=== PATIENT | male | born 1945 | race Caucasian/White ===

== ENCOUNTER 2018-09-11 02:32 | Outpatient (CLI) | payer MEDICARE, MEDICAID, SELFPAY ==
[2018-09-11 10:22] LABS: HCT 45.3 % (40.0-50.0); HGB 15.7 g/dL (13.5-17.5); Mean Corp. HGB Concentration 34.7 g/dL (32.0-36.0); Mean Corpuscular Hemoglobin 31.1 pg (27.0-33.0); Mean Corpuscular Volume 89.7 fL (80-95); Mean Platelet Volume 11.5 fL (8.0-11.0); Platelet Count 171 x1000/uL (130-400); RBC 5.05 m/cumm (4.50-6.00); RBC Distribution Width 14.1 % (11.8-14.1); White Blood Cell Count 7.69 k/cumm (4.4-10.8)
[2018-09-11 11:29] LABS: BUN 16 mg/dL (7-18); CREATININE 0.83 mg/dL (0.70-1.30); Calcium 8.4 mg/dL (8.5-10.1); Chloride 106 mmol/L (98-107); Cholesterol 150 mg/dL (50-200); Glucose 67 mg/dL (70-100); HDL Cholesterol 46 mg/dL (40-60); LDL CHOLESTEROL 85 mg/dL (<100); Potassium 4.3 mmol/L (3.5-5.1); Sodium 143 mmol/L (136-145); TSH (W/Ref FT4) 3.24 uIU/mL (0.358-3.74); Triglyceride 155 mg/dL (30-150)
== END 2018-09-11 02:52 ==
PROVIDERS: PCP Nurse Practitioner Family; Visit Provider Specialist/Technologist Athletic Trainer
DX: E03.9 Hypothyroidism, unspecified (principal)
CPT/HCPCS: 36415; 80048; 80061; 83721; 85027; 84443

== ENCOUNTER 2019-11-10 03:45 | Outpatient (CLI) | payer MEDICARE, MEDICAID, SELFPAY ==
[2019-11-10 14:00] LABS: HCT 45.5 % (40.0-50.0); HGB 15.6 g/dL (13.5-17.5); Mean Corp. HGB Concentration 34.3 g/dL (32.0-36.0); Mean Corpuscular Hemoglobin 30.3 pg (27.0-33.0); Mean Corpuscular Volume 88.3 fL (80-95); Mean Platelet Volume 10.9 fL (8.0-11.0); Platelet Count 176 x1000/uL (130-400); RBC 5.15 m/cumm (4.50-6.00); RBC Distribution Width 13.4 % (11.8-14.1); White Blood Cell Count 8.08 k/cumm (4.4-10.8)
[2019-11-10 14:23] LABS: NT-proBNP 101 pg/mL (<300); TSH 5.37 uIU/mL (0.36-3.74)
== END 2019-11-10 04:05 ==
PROVIDERS: PCP Nurse Practitioner Family; Visit Provider Nurse Practitioner Family
DX: E03.9 Hypothyroidism, unspecified (principal); R53.83 Other fatigue; Z00.00 Encounter for general adult medical examination without abnormal findings
CPT/HCPCS: 36415; 85027; 83880; 84443

== ENCOUNTER 2020-04-03 12:04 | Emergency (ER) | payer MEDICARE, MEDICAID, SELFPAY ==
[2020-04-03 12:14] VITALS: BP 112/93; PULSE 72; RESP 18; TEMP 36.5; O2SAT 95
--- NOTE | 2020-04-03 12:15 | DI.RAD_ITS ---
EXAM: XR PELVIS AP CLINICAL HISTORY: hip pain this morning. TECHNIQUE: 2D digital imaging was performed. COMPARISON: No exams were available for comparison FINDINGS: Right hip hardware noted.. On this single pelvic view the entire extent of the hardware is not inclu ded in the field of view. No pelvic fracture seen. No diastasis of the SI joints and symphysis pubi s. Bone density is age-appropriate. IMPRESSION: As above. If clinically indicated dedicated hip films can be performed. DATA REPOSITORY: RADIATION DOSE DELIVERED:
--- NOTE | 2020-04-03 12:30 | DI.RAD_ITS ---
EXAM: XR LUMBAR SPINE AP, LAT CLINICAL HISTORY: nonverbal. Back/hip pain. TECHNIQUE: 2D digital imaging was performed. COMPARISON: No exams were available for comparison FINDINGS: AP and lateral views reveal no evidence of compression fracture or listhesis. No pars defects. No s ignificant scoliosis. There is moderate disc space narrowing at L1-2 level and T12-L1. Disc spaces below this level exhibit normal height. Sacroiliac joints appear unremarkable. No osseous lesions. IMPRESSION: No fracture or listhesis. Disc narrowing at L1-2 level. DATA REPOSITORY: RADIATION DOSE DELIVERED:
--- NOTE | 2020-04-03 12:30 | W.ED.GENAD ---
Discharge Plan Disposition Patient Disposition: HOME Condition: Improving Discharge Details Clinical Impression: Lumbar strain Primary Care Provider: Gabbie Camargo ED Provider: Lv Pelaez Home Meds and New Rx's Prescriptions: Continued acetaminophen [Mapap Extra Strength] 500 MG tablet 500 mg PO Q4H PRN PRN (Reason: Pain) RF: 0 carbamide peroxide [Murine Ear Wax Removal System] 18 ML drops 3 - 4 patch DIRECTED RF: 0 docusate sodium [Colace] 100 MG capsule 100 mg PO BID RF: 0 lisinopril 5 MG tablet 5 mg PO DAILY RF: 0 multivitamin 1 EACH capsule 1 ea PO BID RF: 0 levothyroxine 50 mcg Tablet See Rx Instructions .ROUTE .COMPLEX RF: 0 Discharge Instructions Instructions: Low Back Strain (ED) Additional Instructions: Home to rest today. Begin range of motion exercises as discussed with physical therapy Continue your regular medications. May use Tylenol as needed for pain. Return for inability to walk, escalating pain, or any other acute concerns. Medical Decision Making 74-year-old male presents from care home where he lives. He is nonverbal. This morning staff noted some pain with transferring but the patient was able to weight-bear. By report had no complaints at bedtime last night. No known fall. No recent injury. Exam is reassuring. Referred for x-ray of pelvis and lumbar spine. There is note of disc narrowing at L1-L2, no fracture appreciated. No fracture seen on pelvis x-ray. Patient is also evaluated by physical therapy and able ambulate without difficulty. May be lumbar or hamstring strain and discussed same as well as management with the patient's caregiver. He is stable and appropriate for discharge to home. He will benefit from in-home PT recheck as an outpatient. HPI General Mode of arrival: wheelchair. Date/Time Provider Initiated Documentation: 04/03/20 12:05. Limitations to Documentation: language barrier. History of Present Illness 74 year old M presents to the emergency department with the chief complaint of Nonverbal, brought by staff with concern for low back, pelvis, hip pain, described as moderate, and is localized to the pelvis. Patient started experiencing this unknown (This morning) Patient notes other (No known fall or injury. No fever.). Patient did receive the following treatments prior to arrival, other Related Data Home Medications Medication Instructions Recorded Confirmed acetaminophen [Mapap Extra 500 mg PO Q4H PRN PRN 04/16/13 04/03/20 Strength] carbamide peroxide [Murine Ear Wax 3 - 4 patch DIRECTED 04/16/13 04/03/20 Removal System] docusate sodium [Colace] 100 mg PO BID 04/16/13 04/03/20 lisinopril 5 mg PO DAILY 04/16/13 04/03/20 multivitamin 1 ea PO BID 04/16/13 04/03/20 levothyroxine See Rx Instructions .ROUTE .COMPLEX 04/03/20 04/03/20 Allergies Allergy/AdvReac Type Severity Reaction Status Date / Time No Known Allergies Allergy Unverified 04/03/20 12:20 General Stated Complaint: Orthopedic BENJIE: 3 Review of Systems Narrative: No fall or injury. Patient is nonverbal. Lives in a care home. No fever or recent illness. See HPI. PFS Social History Smoking/Tobacco Use Status: Never Smoking risk assessment performed?: Yes Alcohol Intake: never Drug use: Never Exam Narrative Exam Narrative: GEN: awake, alert, interactive, nonverbal. HEAD: Normocephalic, atraumatic ENT: Mucous membranes moist, oropharynx unremarkable, External ear exam unremarkable EYES: PERRL, EOMI NECK: Full ROM, no JONNATHAN, no menigismus CHEST/RESP: Nontender, clear to auscultation bilateral, no wheeze/rhonchi/rales CARDIOVASCULAR: RRR, no murmur, rub candy. 2+ Rad pulse bilateral ABDOMEN: Soft, nontender, no mass. +Bowel sounds EXT: Full ROM, no edema, no rash, no tenderness. Back: No step-off or deformity, no focal tenderness Neuro: Grossly normal neurologic exam, conversant, interactive. Psych: Speech fluent, thoughts congruent, affect normal Course Vital Signs Vital signs: Vital Signs Pulse 72 04/03/20 12:14 Respiratory Rate 18 04/03/20 12:14 Blood Pressure 112/93 H 04/03/20 12:14 Pulse Oximetry 95 04/03/20 12:14 Pulse 72 04/03/20 12:14 Respiratory Rate 18 04/03/20 12:14 Respiratory Effort Non-Labored 04/03/20 12:27 Blood Pressure 112/93 H 04/03/20 12:14 Blood Pressure Position Sitting 04/03/20 12:14 Pulse Oximetry 95 04/03/20 12:14 Oxygen Delivery Method Room Air 04/03/20 12:14 Oxygen Flow Rate 0 04/03/20 12:14 Comment 04/03/20 12:14
--- NOTE | 2020-04-03 14:48 | PT.INIE ---
Date of service: 04/03/20 Time of Service: 14:48 PT Notes Physical Therapy Inpatient Initial Evaluation Date: 04/03/2020 Referring Doctor: Lv Pelaez MD PT Orders: PT CONSULT: Safety consult for DC Precautions: Fall. Standard. Activity as tolerated. Developmental delay. Patient Profile/Admitting Diagnosis: Walter is a 74-year-old to the ED on 04/03/2020 who presented with caregiver Myrna reports that patient had significant difficulty getting up and was unable to walk due to nonverbal expressions of pain as patient is dysphasic. PMHX: Hypertension Seizure disorder Autism Developmental delay Hip surgery Social History/Home Situation: [facility] [place] [facility]. Has / supervision. Bedroom is on the second floor with a flight of steps that patient always have somebody with him for all mobility ADL performance. Equipment Owned/DME: None Subjective: Caregiver Myrna complained that earlier this morning patient had a hard time getting up and was not able to walk due to pain. Patient has been non-verbal but makes different sounds at baseline. Caregiver Myrna identified whether sounds made by patient were expressions of pain as this provider went about with examination. Objective: General Observation: Patient supine in stretcher, verbal and body stimulation behavior noted. Caregiver Myrna seated beside him. Mental Status: Alert but non-verbal. Repetitive arm movement and repetitive sound production that sounded like moaning seen and heard. Pain: Did not want proximal posterior thigh area palpated by pushing PT's hands away and by grimacing ROM: Lacks the last 50% of passive range of motion in all joints of B LE. Expression of pain observed with attempt at testing R hamstring while in supine. Strength: Right Lower Extremity: Hip flexors 3-/5. Hip abductors 3-/5. Knee flexors 3-/5. Knee extensors 3-/5. Ankle dorsiflexors 3-/5. Ankle plantarflexors 3-/5. Left Lower Extremity:Hip flexors 3-/5. Hip abductors 3-/5. Knee flexors 3-/5. Knee extensors 3-/5. Ankle dorsiflexors 3-/5. Ankle plantarflexors 3-/5. Sensation: Intact as to pain and pressure on bilateral lower extremities. Bed Mobility/Transfers: Supine to sit minimal assist Sit to supine minimal assist Sit to stand CGA Stand to sit CGA Gait: SBA of 2 in the ED hallway for about 100 feet with no assistive device but with mild almost negligible limping on the R LE during stance phase. Caregiver Myrna indicated that Walter usually walks faster than today and that he does not have that limp prior to today's visit. No grimacing and no sound production indicative of pain during activity. Balance: Static Sitting: Normal Dynamic Sitting: Normal Static Standing: Good Dynamic Standing: Good Special Tests: Mobility Limitations Standardized Measure [facility] AM-PAC 6 clicks Basic Mobility Inpatient Short Form: Raw Score: 21 CMS Score: 22% deficit SLR: Allowed about 45 degrees of passive SLR on the R. Expression of pain with passive R SLR and with palpation of proximal hamstring area. Informed Consent/Education: Patient and caregiver were instructed in purpose of PT consult. Assessment: Walter demonstrates pain with and limitation of passive R hip flexion and resulting mild antalgic gait which may have resulted from a suspected R lumbar/R hamstring strain. Caregiver was advised to use hot moist pack for 20 with skin examination every 5 minutes by nurse/caregiver to prevent skin burn as well as to perform range of motion exercises on the R hip to minimize stiffness. Patient presents with clinical signs and symptoms consistent with current/admitting diagnoses that have resulted to mobility limitations, gait instability, generalized weakness, and impairment of motor control as demonstrated by the following impairment level findings: 1. Decreased strength to B B LE muscle groups 2. Impaired sitting/standing balance 3. Impaired activity tolerance 4. Limitation of joint range of motion in B LE with R >>L Impairments are contributing to the following functional limitations: 1. Dependent bed mobility skills 2. Increased dependence with transfers 3. Inability to safely ambulate without supervision 4. Increase completion time for mobility ADL performance 5. Increased fall risk 6. Inability to negotiate steps alone safely Patient is assessed as a 40138 moderate complexity based on the following: History: 74-year-old male with impairment level findings, functional limitations, and past medical history as indicated above Examination: Demonstrable impairment in strength, balance, and mobility level with underlying impairments and functional limitations as documented above Presentation:Evolving Decision Makin moderate complexity Goals: Goals X1 week N/A. PT consult and one treatment session for CG education on plan of care only Plan of Care/Treatment Plan: N/A. PT consult and one treatment session for CG education on plan of care only DISCHARGE RECOMMENDATIONS: PT to continue with management of lumbar/hamstring strain. TREATMENT CODE/TIME: 87579 x 27 minutes beginning at 2:48 PM. Thank you for the opportunity to participate in the care of this patient. Megha Fish PT, DPT, CLT [facility] [place], [place]
[2020-04-03 15:28] VITALS: BP 96/68; PULSE 69; RESP 20; TEMP 36.5; O2SAT 98
== END 2020-04-03 15:50 | disposition home or self-care (01) ==
PROVIDERS: Emergency Provider Emergency Medicine; PCP Nurse Practitioner Family
DX: S39.012A Strain of muscle, fascia and tendon of lower back, initial encounter (principal); X58.XXXA Exposure to other specified factors, initial encounter
CPT/HCPCS: 97162; 99284; 72100; 72170; 99283

== ENCOUNTER 2020-10-14 12:08 | Outpatient (REF) | payer MEDICARE, MEDICAID, SELFPAY ==
[2020-10-14 15:37] LABS: HCT 47.2 % (40.0-50.0); HGB 15.7 g/dL (13.5-17.5); MCHC 33.3 % (32.0-36.0); MCV 90.1 fL (80-95); Platelet Count 192 10^3/uL (130-400); RBC 5.24 10^6/uL (4.36-5.78); RDW 13.6 % (11.8-14.1); RDW-SD 44.7 fL; WBC 8.74 10^3/uL (4.4-10.8)
[2020-10-14 16:23] LABS: Anion Gap 8.7 mmol/L (3-11); BUN 14 mg/dL (7-18); CO2 27.3 mmol/L (21.0-32.0); CREATININE 0.9 mg/dL (0.70-1.30); Calcium 8.9 mg/dL (8.5-10.1); Chloride 107 mmol/L (98-107); Glucose 94 mg/dL (74-106); Potassium 3.9 mmol/L (3.5-5.1); Sodium 143 mmol/L (136-145); TSH 3.41 uIU/mL (0.36-3.74)
== END 2020-10-14 12:09 | disposition home or self-care (01) ==
LOC: NCHCN 12:08
PROVIDERS: PCP Nurse Practitioner Family; Visit Provider Nurse Practitioner Family
DX: E03.9 Hypothyroidism, unspecified (principal)
CPT/HCPCS: 80048; 85027; 84443

== ENCOUNTER 2021-06-27 15:54 | Emergency (ER) | payer MEDICARE, MEDICAID, SELFPAY ==
[2021-06-27 15:58] VITALS: BP 164/99; PULSE 83; RESP 20; TEMP 36.6; O2SAT 98
--- NOTE | 2021-06-27 16:15 | DI.RAD_ITS ---
Exam(s) XR PELVIS AP EXAM: XR PELVIS AP CLINICAL HISTORY: Hip pain, won't bear weight TECHNIQUE: COMPARISON: CR XR PELVIS AP from 04/03/2020 FINDINGS: Two views were obtained. There is fixation apparatus in the proximal right femur which is incomplete ly seen on these images. There is no evidence of acute fracture or dislocation on the images obtaine d. If there is a high clinical suspicion of injury additional evaluation with CT may be considered. IMPRESSION: RADIATION DOSE DELIVERED: Total DLP
--- NOTE | 2021-06-27 16:44 | W.ED.GENAD ---
Discharge Plan Disposition Patient Disposition: HOME Condition: Improving Discharge Details Clinical Impression: Hip pain Primary Care Provider: Gabbie Camargo ED Provider: Krishna Mandujano Home Meds and New Rx's Prescriptions: Continued acetaminophen [Mapap Extra Strength] 500 MG tablet 500 mg PO Q4H PRN PRN (Reason: Pain) 0RF carbamide peroxide [Murine Ear Wax Removal System] 18 ML drops 3 - 4 patch DIRECTED 0RF docusate sodium [Colace] 100 MG capsule 100 mg PO BID 0RF lisinopril 5 MG tablet 5 mg PO DAILY 0RF multivitamin 1 EACH capsule 1 ea PO BID 0RF levothyroxine 50 mcg Tablet See Rx Instructions .ROUTE .COMPLEX 0RF Rx Instructions: 50 mcg orally 5 days a week: Mon-Fri Discharge Instructions Instructions: Hip Pain (ED) Additional Instructions: X-ray of the pelvis was unremarkable and he is now using both legs frequently and bearing weight which appears to be his baseline. Please continue [id number] medications as directed. Rest, advance activity as tolerated, cool and/or warm compresses every 2 hours for 20 minutes. Please watch for new or worsening symptoms and return to the ER for any concerns. Lastly, please contact your primary care provider tomorrow to discuss your ER visit need for outpatient reevaluation. Medical Decision Making This is a 75-year-old gentleman, nonverbal, presenting via EMS from his [facility] with a staff member who reports that he appears to be at his baseline. They state that he is typically ambulatory without assistance and today after sitting after breakfast he did not want to stand and they felt as though he was likely favoring his right leg. They do know that he has a history of right hip surgery. Deny any recent illness or trauma. They used [id number] medications which did not seem to help so they came to the ER for further evaluation. There is no obvious deformity, shortening or rotation, normal pedal pulse, no calf swelling, redness, palpable cord. Patient has full range of motion of his leg. Discussed evaluation and the plan with staff. They are both concerned for a hip injury. I see no clear indication to initiate IV access or obtain any blood work. Will obtain x-ray of the pelvis and reassess X-ray pelvis read by radiology as no acute process. Discussed x-ray findings with staff member of the [facility] and need for further evaluation versus discharge. Plan now is to attempt to trial ambulate the patient and reassess. They would prefer to hold off on any IV access, blood work or CT imaging. Patient was able to ambulate, fully bear weight on both legs without any difficulty whatsoever. Staff reports that he appears to be at his baseline and is comfortable discharge back to the [facility] facility. She does assure me that they will return to the ER for any new or evolving symptoms. Otherwise stable use [id number] medication for symptomatic control and contact your primary care provider on Wednesday. Patient appears well, nontoxic, able to fully bear weight, and is at baseline per staff. This documentation was generated using [employer] system, please disregard any oddities of phrase or misspellings. Medical Records Medical records reviewed: Yes I reviewed the patient's medical records. Imaging Data Radiologic Study: Attestation: I personally reviewed and interpreted this imaging study as follows: Imaging: X-Ray Radiologist's impression: PROCEDURE INFORMATION: Exam: XR Pelvis Exam date and time: 06/27/2021 4:24 PM Age: 75 years old Clinical indication: Pelvic pain; Prior surgery; Patient HX: Hip pain, won't bear weight TECHNIQUE: Imaging protocol: XR pelvis. Views: 1 or 2 view. COMPARISON: CR XR PELVIS AP 04/03/2020 1:09 PM FINDINGS: Bones/joints: Redemonstrated fixation hardware right proximal femur. No acute fracture or dislocation. Soft tissues: Unremarkable soft tissues. IMPRESSION: No acute findings. HPI General Mode of arrival: EMS. Date/Time Provider Initiated Documentation: 06/27/21 15:59. Limitations to Documentation: language barrier (non verbal). Information obtained by: family (staff from [facility]). HPI Narrative: This is a 75-year-old gentleman, nonverbal, presenting to the ER via EMS with staff from his [facility] for concern of a right hip injury. Staff reports that he has been baseline over the past 24 hours, this morning was ambulatory and had breakfast. He sat down in his chair after breakfast and may be sat down longer than he typically does, then upon trying to get up seem to be favoring his right leg and did not want to bear weight. They gave [id number] Tylenol which did not seem to help. There was no trauma. Staff reports that he appears to be at his normal baseline. Denies recent illness, trauma, fever. Reports that he is typically ambulatory without assistance Related Data Home Medications Medication Instructions Recorded Confirmed acetaminophen 500 mg tablet (Mapap 500 mg PO Q4H PRN PRN 04/16/13 04/03/20 Extra Strength) carbamide peroxide 6.5 % ear drops 3 - 4 patch DIRECTED 04/16/13 04/03/20 (Murine Ear Wax Removal System) docusate sodium 100 mg capsule 100 mg PO BID 04/16/13 06/27/21 (Colace) lisinopril 5 mg tablet 5 mg PO DAILY 04/16/13 04/03/20 multivitamin 1 ea PO BID 04/16/13 06/27/21 levothyroxine 50 mcg tablet See Rx Instructions .ROUTE .COMPLEX 04/03/20 06/27/21 Allergies Allergy/AdvReac Type Severity Reaction Status Date / Time No Known Allergies Allergy Verified 06/27/21 16:20 General Stated Complaint: Orthopedic BENJIE: 3 Review of Systems Unobtainable due to (Nonverbal) PFSH All Active Problems Hip pain (Acute) Social History Smoking/Tobacco Use Status: Never Smoking risk assessment performed?: Yes Alcohol Intake: never Drug use: Never Substance use type: does not use Do you feel safe at home: Yes Additional Social history: lives in an assisted living facility Exam Const General: healthy appearing, no acute distress and other (Unable to follow commands, baseline per staff) Orientation: alert and awake HENAZ Head: normal to inspection, normocephalic and atraumatic Mouth: moist mucous membranes Eyes Conjunctivae: conjunctivae normal Neck Neck: normal visual inspection, full ROM, trachea midline and supple Resp Effort & Inspection: normal respiratory effort and able to speak in complete sentences Auscultation: clear to auscultation bilaterally Cardio Rate: regular rate Rhythm: regular rhythm GI Palpation: soft, not firm, no guarding, no pulsatile masses and nontender Back/Spine/Pelvis Back: No back tenderness Skin General skin exam: no rashes or lesions noted Neuro General: patient alert, patient awake, moves all extremities and no focal motor deficits Motor: muscle tone normal throughout Sensory Exam: no sensory deficits noted Extrem General: normal to inspection, full ROM, capillary refill normal and no calf tenderness Psych Appearance: grossly normal Mental Status: mental status grossly normal Course Vital Signs Vital signs: Vital Signs Temperature 36.6 C 06/27/21 15:58 Pulse 83 06/27/21 15:58 Respiratory Rate 20 06/27/21 15:58 Blood Pressure 164/99 H 06/27/21 15:58 Pulse Oximetry 98 06/27/21 15:58 Temperature 36.6 C 06/27/21 15:58 Temperature Source Skin 06/27/21 15:58 Pulse 83 06/27/21 15:58 Respiratory Rate 20 06/27/21 15:58 Blood Pressure 164/99 H 06/27/21 15:58 Pulse Oximetry 98 06/27/21 15:58 Oxygen Delivery Method Room Air 06/27/21 15:58 Oxygen Flow Rate 0 06/27/21 15:58 Comment 06/27/21 15:58
--- NOTE | 2021-06-27 17:42 | NUR.NOTE ---
Nursing Note: Pt return from DI, provider requested to have pt do trial ambulation, pt assisted OOB and was able to ambulate at baseline per pt caregiver.
--- NOTE | 2021-06-27 17:43 | DI.VRAD_ITS ---
PROCEDURE INFORMATION: Exam: XR Pelvis Exam date and time: 06/27/2021 4:24 PM Age: 75 years old Clinical indication: Pelvic pain; Prior surgery; Patient HX: Hip pain, won't bear weight TECHNIQUE: Imaging protocol: XR pelvis. Views: 1 or 2 view. COMPARISON: CR XR PELVIS AP 04/03/2020 1:09 PM FINDINGS: Bones/joints: Redemonstrated fixation hardware right proximal femur. No acute fracture or dislocation. Soft tissues: Unremarkable soft tissues. IMPRESSION: No acute findings. Dictated and Authenticated by: Dallin Ladd MD. Ordering:RENÉ Keller MD
== END 2021-06-27 17:57 | disposition home or self-care (01) ==
PROVIDERS: Emergency Provider Physician Assistant; PCP Nurse Practitioner Family
DX: M25.551 Pain in right hip (principal); R47.89 Other speech disturbances
CPT/HCPCS: 99283; 72170; 99282

== ENCOUNTER 2021-06-29 10:15 | Inpatient (IN) | payer MEDICARE, MEDICAID, SELFPAY ==
[2021-06-29] VITALS (25 sets, daily range): BP systolic 110–189; BP diastolic 62–88; PULSE 62–87; RESP 10–29; TEMP 36–36.6; O2SAT 94–97
--- NOTE | 2021-06-29 11:03 | W.ED.GENAD ---
Discharge Plan Disposition Patient Disposition: [facility] INPATIENT Condition: Improving Discharge Details Chief Complaint: GenMedical Clinical Impression: Acute pain of left hip, Ambulatory dysfunction Admit Date/Time: 06/29/21 15:45 Admit Provider: Cheyanne Bhatt Attending Provider: Cheyanne Bhatt Primary Care Provider: Margaret Irizarry ED Provider: Khoa Chung Discharge Instructions Activity:: Activity as Tolerated Equipment/Supplies:: No Equipment Needed Diet:: As Tolerated Discharge Orders Discharge Orders: Discharge Order (Routine); Ordered 07/01/21 Ordered By: Jacque Ag Discharge Data Discharge Date/Time-TO BE ENTERED AT DEPARTURE: 06/29/21 16:44 Medical Decision Making Patient presenting to the emergency department for chief complaint of inability to bear weight, hip pain, and urinary retention. Patient was seen on Wednesday and had radiological imaging performed of left hip which was negative. At that time patient was able to ambulate around the emergency department so was discharged back to care facility. They state since then patient has not gotten up and continues to refuse to ambulate. He has been holding his urine with some incontinence that they feel is more secondary to not wanting to get up. Staff reports that patient's mental statusis at baseline. Physical exam shows noncommunicative moaning and singing adult landing primarily on his right side. Clear lung sounds normal cardiac sounds, nontender abdomen with normal active bowel sounds. No tenderness noted over suprapubic region, there is noted tenderness when I palpate the left hip but again difficult to pinpoint given patient's communication status. Exam is otherwise unremarkable, no obvious signs of acute trauma. Given that patient already had x-ray imaging with no acute findings plan to do CT imaging including CT of hip for possible occult hip fracture. Plan to give patient pain medication pending results. We will also perform catheterization to measure how much urine output patient has. In and out catheter showed 700c urine with only 45 cc of urine [address] imaging shows no acute findings but of note was a significant abdominal thoracic hernia. Did discuss with surgery who also feels that this is a nonacute finding and no surgical interventions needed. Patient still seems to be in pain with movement so we will give Toradol and have patient attempt to ambulate. Patient was not willing/unable to ambulate. Spoke with staff at care facility and they stated that to return to care facility patient would need to be ambulatory given that they do not have the capacity to care for nonambulated patient. Due to this hospitalist was consulted for consideration of physical therapy assessment and interventions along with any further testing as needed or if further exam reveals more pertinent finding. Hospitalist was agreeable to admit patient. HPI General Mode of arrival: EMS. Date/Time Provider Initiated Documentation: 06/29/21 10:45. Limitations to Documentation: language barrier. Information obtained by: RN/MD (manager delivery at [facility]), RN notes reviewed and old records reviewed. History of Present Illness 75 year old M presents to the emergency department with the chief complaint of Left hip pain and urinary retention with incontinence, described as moderate, Quality is described as constant, and is localized to the left and lower extremity. Patient started experiencing this day(s) (3) and it has been constant. improves with No relieving factors improve symptom(s), Movement worsens symptoms . Patient notes no other symptoms.. Patient did receive the following treatments prior to arrival, none Related Data Home Medications Medication Instructions Recorded Confirmed acetaminophen 500 mg tablet (Mapap 500 mg PO Q4H PRN PRN 04/16/13 06/29/21 Extra Strength) carbamide peroxide 6.5 % ear drops 3 - 4 patch DIRECTED 04/16/13 06/29/21 (Murine Ear Wax Removal System) docusate sodium 100 mg capsule 100 mg PO BID 04/16/13 06/29/21 (Colace) multivitamin 1 ea PO BID 04/16/13 06/29/21 levothyroxine 50 mcg tablet See Rx Instructions .ROUTE .COMPLEX 04/03/20 06/29/21 gabapentin 100 mg capsule 100 mg PO TID #90 cap 07/01/21 lidocaine 5 % topical patch 1 patch TOPICAL DAILY@1400 #15 ea 07/01/21 prednisone 20 mg tablet 40 mg PO DAILY #10 tab 07/01/21 tamsulosin 0.4 mg capsule 0.4 mg PO DAILY #30 cap 07/01/21 Previous Rx's Medication Instructions Recorded gabapentin 100 mg capsule 100 mg PO TID #90 cap 07/01/21 lidocaine 5 % topical patch 1 patch TOPICAL DAILY@1400 #15 ea 07/01/21 prednisone 20 mg tablet 40 mg PO DAILY #10 tab 07/01/21 tamsulosin 0.4 mg capsule 0.4 mg PO DAILY #30 cap 07/01/21 Allergies Allergy/AdvReac Type Severity Reaction Status Date / Time No Known Allergies Allergy Verified 06/29/21 10:33 General Stated Complaint: GenMedical BENJIE: 3 Review of Systems Narrative: 8 systems reviewed and are unremarkable except for pertinent findings marked below Constitutional Constitutional: Denies chills and Denies fever(s) Gastrointestinal Gastrointestinal: Denies diarrhea and Denies vomiting Genitourinary Genitourinary: Reports as per HPI, Reports oliguria and Reports urinary incontinence Musculoskeletal Musculoskeletal: Reports as per HPI Neurologic Neurologic: Reports system reviewed and no additional complaints, except as documented and Reports other (No change from baseline) PFSH All Active Problems (Updated 07/04/21 @ 15:40 by Khoa Chung NP) Acute pain of left hip (Acute) Ambulatory dysfunction (Acute) Medical History (Updated 07/04/21 @ 15:40 by Khoa Chung NP) Hypothyroidism Nonverbal Palliative care status Social History Smoking/Tobacco Use Status: Never Smoking risk assessment performed?: Yes Alcohol Intake: never Drug use: Never Substance use type: does not use Do you feel safe at home: Yes Additional Social history: lives in an assisted living facility Exam Const Limitations: behavioral limitations, language barrier and physical limitations [facility] Head: atraumatic Eyes General: appearance normal, both eyes and all related structures Resp Effort & Inspection: normal respiratory effort Auscultation: clear to auscultation bilaterally Cardio Rate: regular rate Rhythm: regular rhythm Heart Sounds: S1 normal and S2 normal GI Palpation: soft and nontender Auscultation: normal bowel sounds Back/Spine/Pelvis Thoracic/Lumbar Spine: No lumbar spinal tenderness Skin General skin exam: no rashes or lesions noted Neuro General: patient alert, patient awake and moves all extremities Extrem General: normal exam except as noted Left lower extremity: hip/thigh Details: tenderness; Negative for no ecchymosis and no deformity, knee Details: normal to inspection, lower leg Details: normal to inspection, ankle Details: normal to inspection and foot Details: normal capillary refill Course Vital Signs Vital signs: Vital Signs Temperature 36.6 C 06/29/21 10:21 Pulse 85 06/29/21 10:21 Respiratory Rate 15 06/29/21 10:21 Blood Pressure 189/85 H 06/29/21 10:21 Pulse Oximetry 97 06/29/21 10:21 Temperature 36.6 C 06/29/21 10:21 Temperature Source Skin 06/29/21 10:21 Pulse 74 06/29/21 10:31 Pulse 76 06/29/21 10:31 Respiratory Rate 10 L 06/29/21 10:31 Respiratory Effort 06/29/21 10:21 Blood Pressure 140/85 06/29/21 10:31 Blood Pressure Mean 99 06/29/21 10:31 Blood Pressure Position Supine 06/29/21 10:21 Pulse Oximetry 96 06/29/21 10:31 Pain Level 10 06/29/21 10:21
[2021-06-29 11:28] LABS: Abs Immature Grans 0.04 10^3/uL (0.0-0.06); Absolute Lymphocyte Count 2.77 10^3/uL (1.2-3.4); Absolute Monocyte Count 0.83 10^3/uL (0.1-0.8); Basophils % 0.3; Eosinophils % 0.9; HCT 47.9 % (40.0-50.0); HGB 16.2 g/dL (13.5-17.5); Immature Grans % 0.3; Lymphocytes % 23.9; MCH 30.3 pg (27.0-33.0); MCHC 33.8 % (32.0-36.0); MCV 89.7 fL (80-95); MPV 10.4 fL (8.0-11.0); Monocytes % 7.2; Neutrophils % 67.4; Nucleated RBC 0 %; Platelet Count 255 10^3/uL (130-400); RBC 5.34 10^6/uL (4.36-5.78); RDW 13.2 % (11.8-14.1); RDW-SD 43.4 fL; WBC 11.58 10^3/uL (4.4-10.8)
[2021-06-29 11:29] LABS: Absolute Basophil Count 0.03 10^3/uL (0.0-0.2)
[2021-06-29] MEDS: HYDROmorphone 2 MG/ML VIAL 1 MG IVP (11:33)
[2021-06-29 11:49] LABS: ALT 25 U/L (16-63); AST 31 U/L (15-37); Albumin 3.4 g/dL (3.4-5.0); Alkaline Phosphatase 62 U/L (46-116); Anion Gap 8.8 mmol/L (3-11); BUN 15 mg/dL (7-18); Bilirubin, Total 0.7 mg/dL (0.2-1.0); CO2 25.2 mmol/L (21.0-32.0); CREATININE 0.9 mg/dL (0.70-1.30); Calcium 8.5 mg/dL (8.5-10.1); Chloride 107 mmol/L (98-107); Glucose 103 mg/dL (74-106); Sodium 141 mmol/L (136-145); Total Protein 7.9 g/dL (6.4-8.2)
--- NOTE | 2021-06-29 12:15 | DI.CT_ITS ---
Exam(s) CT ABDOMEN PELVIS W EXAM: CT ABDOMEN PELVIS W CLINICAL HISTORY: LLQ, hip pain and urinary retention TECHNIQUE: COMPARISON: No exams were available for comparison FINDINGS: CT examination of the abdomen and pelvis was performed with bolus infusion of 100 cc of Omnipaque 350 . There is a very large hiatal and/or posterior diaphragmatic hernia projected into the central and rig ht lower thorax, this contains majority of the stomach as well as portions of colon, small bowel, spl een and pancreas.. No focal hepatic lesion. No biliary dilatation. Gallbladder is CT normal. Spleen a appears unremar kable. . Adrenals appear normal bilaterally. Kidneys appear normal with no evidence of renal mass, hydronephrosis, or nephrolithiasis. Urinary bl adder wall is thickened which may reflect chronic bladder outlet obstruction or cystitis, please inez elate clinically.. There is no evidence of abdominal or pelvic adenopathy. Abdominal aorta is of normal diameter and no abnormality is seen involving major visceral branches.. Appendix is nonvisualized. No evidence diverticulitis or bowel obstruction. Impression: Massive upper abdominal herniation into lower thorax as described above. No evidence of acute proces s.. RADIATION DOSE DELIVERED: 731.99mGy.cm Total DLP 731.99mGy.cm Total DLP !Error CTDIvol DATA REPOSITORY: All CT scans at this facility are submitted to the National Radiology Data Registry (NRDR) Dose Index Registry (DIR) with the [employer] [place] [employer] (ACR). RADIATION OPTIMIZATION: All CT scans at this facility use at least one of these dose optimization te chniques: automated exposure control; mA and/or kV adjustment per patient size (includes targeted exa ms where dose is matched to clinical indication); or iterative reconstruction.
--- NOTE | 2021-06-29 12:15 | DI.CT_ITS ---
Exam(s) CT LOWER EXTREMITY LT WO EXAM: CT LOWER EXTREMITY LT WO CLINICAL HISTORY: Hip pain not ambulating TECHNIQUE: COMPARISON: No exams were available for comparison FINDINGS: CT examination of the left hip was performed. No fluid collection identified in the pelvis. No capo opathy. In the visualized urinary bladder appears intact. There is no evidence of acute fracture or dislocation of the hip. IMPRESSION: RADIATION DOSE DELIVERED: 354.03mGy.cm Total DLP !Error CTDIvol RADIATION OPTIMIZATION: All CT scans at this facility use at least one of these dose optimization te chniques: automated exposure control; mA and/or kV adjustment per patient size (includes targeted exa ms where dose is matched to clinical indication); or iterative reconstruction.
[2021-06-29 12:18] LABS: Bilirubin Negative (Negative); Blood Small (Negative); Clarity Clear (Clear); Glucose Negative (Negative); Ketones Negative (Negative); Leukocyte Esterase Negative (Negative); Nitrite Negative (Negative); Specific Gravity >= 1.030 (1.005-1.025); Urobilinogen 0.2 EU/dL (Up TO 0.2)
[2021-06-29 12:31] LABS: Bacteria Rare HPF (Negative); C & S Indicated? No; Casts Negative LPF (Negative); Crystals Negative HPF (Negative); Epithelial Cells Rare HPF (Negative); Mucus Trace (Negative); Other Cells Few Spermatozoa (Negative); WBC 0-2 HPF (0-5)
[2021-06-29] MEDS: Omnipaque 350 MG/ML 100 ML BTL IJ (13:31)
--- NOTE | 2021-06-29 16:18 | HPE_ITS ---
Date of service: 06/29/21 Time of Service: 16:18 Assessment and Plan Assessment and plan (1) Hip pain: Status: Acute Assessment and plan: no witnessed or reported fall. plain film from Wednesday and CT scan from today shows no etiology to explain symptoms. schedule pain medication PT/OT consultation (2) Hypothyroidism: Status: Chronic Assessment and plan: check TSH continue levothryoxine 50 mcg on wednesday-through Wednesday discussed with DR Bhatt History of Present Illness History of Present Illness Chief Complaint: hip pain Narrative: history obtained from ED records as patient is unable to provide at baseline. Patient presented to the emergency department for chief complaint of inability to bear weight, left hip pain, and urinary retention.? Patient was seen on Wednesday and had radiological imaging performed of left hip which was negative.? At that time patient was able to ambulate around the emergency department so was discharged back to his care facility.? Since returning it was reported he has not gotten up and continues to refuse to ambulate.? He was straight cath'd for [address] imaging shows no acute findings but of note was a significant abdominal thoracic hernia.? This was discussed with surgery who stated this was a nonacute finding and no surgical interventions needed.? Even after receiving pain medication (toradol and dilaudid) he was still not able to be re-ambulated. Hospitalist services contacted and request for admission for ambulatory dysfunction. Review of Systems Unobtainable due to mental status (baseline non verbal. ) PFSH All Active Problems (Updated 06/29/21 @ 16:32 by Jacque Ag NP) Hypothyroidism (Chronic) Hip pain (Acute) Social History Smoking/Tobacco Use Status: Never Smoking risk assessment performed?: Yes Alcohol Intake: never Drug use: Never Substance use type: does not use Do you feel safe at home: Yes Additional Social history: lives in an assisted living facility Meds Allergies and Home Medications Allergies Allergy/AdvReac Type Severity Reaction Status Date / Time No Known Allergies Allergy Verified 06/29/21 10:33 Home Medications Medication Instructions Recorded Confirmed Type acetaminophen 500 mg tablet (Mapap 500 mg PO Q4H PRN PRN 04/16/13 06/29/21 History Extra Strength) carbamide peroxide 6.5 % ear drops 3 - 4 patch DIRECTED 04/16/13 06/29/21 History (Murine Ear Wax Removal System) docusate sodium 100 mg capsule 100 mg PO BID 04/16/13 06/29/21 History (Colace) multivitamin 1 ea PO BID 04/16/13 06/29/21 History levothyroxine 50 mcg tablet See Rx Instructions .ROUTE .COMPLEX 04/03/20 06/29/21 History Exam Const General: comfortable and no acute distress Nutritional Appearance: average body habitus and well nourished Orientation: alert, awake and other (non verbal, does not follow commands) [facility] Head: normal to inspection, normocephalic and atraumatic Chest Chest: normal inspection of the chest Resp Effort & Inspection: normal respiratory effort Cardio Rate: regular rate Rhythm: regular rhythm GI Inspection: normal to inspection Palpation: soft Skin General skin exam: no rashes or lesions noted and no ecchymosis Neuro Motor: muscle tone normal throughout Extrem General: normal to inspection, full ROM and no pedal edema Results Labs Result diagrams: 06/29/21 11:25 06/29/21 11:25 Labs: Laboratory Results - last 24 hr 06/29/21 06/29/21 06/29/21 11:25 11:25 11:47 WBC 11.58 H RBC 5.34 Hgb 16.2 Hct 47.9 MCV 89.7 MCH 30.3 MCHC 33.8 RDW 13.2 Plt Count 255 MPV 10.4 Immature Gran % 0.3 Neutrophils % 67.4 Lymphocytes % 23.9 Monocytes % 7.2 Eosinophils % 0.9 Basophils % 0.3 Nucleated RBC % 0 Absolute Neutrophils 7.80 H Absolute Lymphocytes 2.77 Absolute Monocytes 0.83 H Absolute Eosinophils 0.10 Absolute Basophils 0.03 Sodium 141 Potassium 4.0 Chloride 107 Carbon Dioxide 25.2 Anion Gap 8.8 BUN 15 Creatinine 0.9 Estimated GFR/1.73 m2 >= 60.00 Glucose 103 Calcium 8.5 Total Bilirubin 0.7 AST 31 ALT 25 Alkaline Phosphatase 62 Total Protein 7.9 Albumin 3.4 Urine Color Yellow Urine Clarity Clear Urine pH 6.0 Ur Specific [place] >= 1.030 H Urine Protein 30 H Urine Ketones Negative Urine Blood Small H Urine Nitrite Negative Urine Bilirubin Negative Urine Urobilinogen 0.2 Ur Leukocyte Esterase Negative Urine RBC 10-20 H Urine WBC 0-2 Ur Epithelial Cells Rare Urine Crystals Negative Urine Bacteria Rare Urine Casts Negative Urine Mucus Trace Urine Other Few [place] Ur Culture Indicated? No Urine Glucose Negative Last Vital Signs Temp 36.6 C 06/29/21 10:21 Pulse 74 06/29/21 10:31 Resp 18 06/29/21 12:10 BP 140/85 06/29/21 10:31 Pulse Ox 96 06/29/21 10:31
[2021-06-29 16:28] LABS: Source Nasal/Nares
[2021-06-29 17:05] LABS: COVID-19 PCR Negative (Negative)
[2021-06-29 17:16] LABS: TSH (W/Ref FT4) 5.92 uIU/mL (0.36-3.74)
[2021-06-29 17:32] LABS: FREE T4 1.09 ng/dL (0.76-1.46)
[2021-06-29] MEDS: Normal Saline Flush 10 ML SYR IVP (20:46)
[2021-06-29] MEDS: ACETAMINOPHEN 1,000 MG/100 ML BTL 400 MG IVPB (20:46)
[2021-06-29] MEDS: Docusate Sodium 100 MG CAP PO (20:46)
[2021-06-29] MEDS: Ibuprofen 600 MG TAB PO (20:46)
--- NOTE | 2021-06-30 | DI.CT_ITS ---
Exam(s) CT LUMBAR SPINE RECONS EXAM: CT LUMBAR SPINE RECONS CLINICAL HISTORY: severe pain, inability to ambulate. TECHNIQUE: Axial, coronal and sagittal images were reconstructed of the lower thoracic and lumbosacr al spine from the abdomen pelvic CT. CONTRAST MATERIAL: Intravenous: Omnipaque 350 Contrast volume:100 Oral: no COMPARISON: CT CT ABDOMEN PELVIS W from 06/29/2021 FINDINGS: Bones: The last intervertebral disc space is designated the L5/S1 level for the numbering purpose of this examination. The vertebral body heights are well maintained. Alignment is satisfactory. No frac ture is seen. No destructive bony lesion. Mild degenerative disc changes are present at multiple levels. There is a Schmorl's node at the infe rior endplate of L1. There are small endplate osteophytes and mild disc bulging at L1-2. There is m ild disc bulging at. There remaining discs are unremarkable. There are mild facet joint degenerativ e changes. There is no significant neural foraminal narrowing or central canal stenosis at any level .. The visualized SI joints and sacrum are will maintained. IMPRESSION: Mild degenerative changes, greatest at L1-2 and L4-5. RADIATION DOSE DELIVERED: Total DLP DATA REPOSITORY: All CT scans at this facility are submitted to the National Radiology Data Registry (NRDR) Dose Index Registry (DIR) with the [place] [employer] (ACR). RADIATION OPTIMIZATION: All CT scans at this facility use at least one of these dose optimization te chniques: automated exposure control; mA and/or kV adjustment per patient size (includes targeted exa ms where dose is matched to clinical indication); or iterative reconstruction.
[2021-06-30] MEDS: Levothyroxine 50 MCG TAB PO (06:45)
[2021-06-30 07:58] LABS: Abs Immature Grans 0.05 10^3/uL (0.0-0.06); Absolute Basophil Count 0.03 10^3/uL (0.0-0.2); Absolute Eosinophil Count 0.25 10^3/uL (0.0-0.7); Absolute Lymphocyte Count 2.18 10^3/uL (1.2-3.4); Absolute Monocyte Count 0.78 10^3/uL (0.1-0.8); Absolute Neutrophil Count 6.59 10^3/uL (1.2-6.7); Basophils % 0.3; Eosinophils % 2.5; HCT 44.8 % (40.0-50.0); HGB 15.4 g/dL (13.5-17.5); Immature Grans % 0.5; Lymphocytes % 22.1; MCH 30.6 pg (27.0-33.0); MCHC 34.4 % (32.0-36.0); MCV 89.1 fL (80-95); MPV 10.5 fL (8.0-11.0); Monocytes % 7.9; Neutrophils % 66.7; Nucleated RBC 0 %; Platelet Count 223 10^3/uL (130-400); RBC 5.03 10^6/uL (4.36-5.78); RDW 13.4 % (11.8-14.1); RDW-SD 43.9 fL; WBC 9.88 10^3/uL (4.4-10.8)
[2021-06-30] MEDS: Normal Saline Flush 10 ML SYR IVP ×3 (08:17→20:46)
[2021-06-30] MEDS: Multivitamin TAB 1 TAB PO (08:18)
[2021-06-30] MEDS: Docusate Sodium 100 MG CAP PO ×2 (08:18→20:01)
[2021-06-30] MEDS: Ibuprofen 600 MG TAB PO ×2 (08:18→11:49)
[2021-06-30] MEDS: ACETAMINOPHEN 1,000 MG/100 ML BTL 400 MG IVPB ×2 (08:18→14:54)
[2021-06-30 08:31] LABS: ALT 20 U/L (16-63); AST 28 U/L (15-37); Alkaline Phosphatase 58 U/L (46-116); Anion Gap 10.9 mmol/L (3-11); BUN 17 mg/dL (7-18); Bilirubin, Total 0.9 mg/dL (0.2-1.0); CO2 24.1 mmol/L (21.0-32.0); CREATININE 0.9 mg/dL (0.70-1.30); Calcium 8.7 mg/dL (8.5-10.1); Chloride 110 mmol/L (98-107); Glucose 94 mg/dL (74-106); Potassium 3.6 mmol/L (3.5-5.1); Sodium 145 mmol/L (136-145); Total Protein 7.2 g/dL (6.4-8.2)
--- NOTE | 2021-06-30 09:57 | IN_ITS ---
Date of service: 06/30/21 Time of Service: 09:57 PT Notes Visit Reasons: Hip Pain Physical Therapy Inpatient Initial Evaluation Date: 06/30/2021 Referring Doctor: Jacque Ag NP PT Orders: PT CONSULT: Eval/treat Precautions: Fall. Standard.? Activity as tolerated.? Developmental delay. Seizure-prone. Dysphasic. Patient Profile/Admitting Diagnosis: Walter is a 75-year-old male who presented to the ED on 06/29/2021 due to inability to bear weight on bilateral lower extremities, urinary retention, and left hip pain. Patient is diagnosed with hip pain, hypothyroidism, and ambulatory dysfunction. X-ray of the left hip showed no fracture. PMHX: All Active Problems?(Updated 06/29/21 @ 16:32 by Jacque Ag NP) Hypothyroidism (Chronic) Hip pain (Acute) Medical History Hypertension Seizure disorder Autism Developmental delay Hip surgery Social History/Home Situation: Lives in a ch[facility] in [facility].? Has /7 supervision.? Bedroom is on the second floor with a flight of steps that patient always have somebody with him for all mobility ADL performance. Equipment Owned/DME: None Subjective: Patient demonstrates unwillingness to sit up and stand despite several attempts by this PT, Nurse Viveros, and sitter/caregiver at patient engagement. Caregiver Mona was called via the phone and asked about strategies that would work, still to no avail. Nurse Fidel, this PT, and sitter/caregiver agreed on waiting for Caregiver Mona to come in the afternoon so that with her leading, patient may agree to stand up. Objective: General Observation: Patient supine in bed. Sitter/caregiver present. Mental Status: Alert but non-verbal. Repetitive arm movement seen and repetitive moaning heard. Pain: None obeserved ROM: Lacks the last 50% of passive range of motion in all joints of B LE. Expression of pain observed with attempt at testing R hamstring while in supine. Strength: Right Lower Extremity: Hip flexors 3-/5. Hip abductors 3-/5. Knee flexors 3-/5. Knee extensors 3-/5. Ankle dorsiflexors 3-/5. Ankle plantarflexors 3-/5. Left Lower Extremity:Hip flexors 3-/5. Hip abductors 3-/5. Knee flexors 3-/5. Knee extensors 3-/5. Ankle dorsiflexors 3-/5. Ankle plantarflexors 3-/5. Sensation: Intact as to pain and pressure on bilateral lower extremities. Bed Mobility/Transfers: Supine to sit minimal assist Sit to supine minimal assist Sit to stand CGA Stand to sit CGA Gait: Unable to test Balance: Static Sitting: Normal Dynamic Sitting: Normal Static Standing: Good Dynamic Standing: Good Special Tests: Mobility Limitations Standardized Measure [facility]-PAC 6 clicks Basic Mobility Inpatient Short Form: Raw Score: 10 ? CMS Score: 71% deficit ? ? Informed Consent/Education:? Caregiver is aware and is agreeable of plan to do a PT evalaution as ordered by MD. Assessment: Patient is able to put legs down onto floor and lift them up onto the bed with no display of pain in face in body. Nurse Viveros tried catheterizing him and was able to get over 700 mL of urine. Thinking that this may make him more comfortanle and agreeable to get out of bed, another attempt was made by Nurse Viveros later in the morning but to no avail. Will attempt to approach patient this afternoon and consult with hospitalist if the issue persists. Patient presents with clinical signs and symptoms consistent with current/admitting diagnoses that have resulted to mobility limitations, gait instability, generalized weakness, and impairment of motor control as demonstrated by the following impairment level findings: 1.? Decreased strength to B B LE muscle groups 2.? Impaired sitting/standing balance 3.? Impaired activity tolerance 4.? Limitation of joint range of motion in B LE with R >>L Impairments are contributing to the following functional limitations: 1.? Dependent bed mobility skills 2.? Inability to transfer 3.? Inability to ambulate 4.? Increase completion time for mobility ADL performance 5.? Increased fall risk Patient is assessed as a 80795 high complexity based on the following: History: 75-year-old male with impairment level findings, functional limitations, and past medical history as indicated above Examination: Demonstrable impairment in strength, balance, and mobility level with underlying impairments and functional limitations as documented above Presentation: Evolving Decision Makin high complexity Goals: Goals X1 week 1. Supine-Sit independent 2. Sit-Supine independent 3. Sit-Stand independent 4. Stand-Sit independent 5. Bed-Chair independent 6. Chair-Bed independent 7. Supervision gait on level surface with use of no AD for at least 100 feet without report of pain nor dyspnea Plan of Care/Treatment Plan: 1-2x/day, 7 days/week x 1 week. Plan of care has been reviewed with the TOUR MANAGER providing the service under Physical Therapy direction. Initiate Physical Therapy intervention for pain management as needed, strengthening, bed mobility, transfers, gait, stairs, balance training, and use of assistive device. DISCHARGE RECOMMENDATIONS: [] Home with no services [] [] Home with services [specify] [] Home with outpatient PT [] [X] SNF for continued rehabilitation. Patient will benefit from jail facility placement for continued skilled physical therapy services in order to progress mobility level, strength, and balance in preparation for a safe discharge to home. [] [facility] [] [] SNF versus LTC based on ability to participate and progress [] TREATMENT CODE/TIME: 76210 x 38 minutes beginning at 9:57 AM. Thank you for the opportunity to participate in the care of this patient. Megha Fish PT, DPT, CLT [facility] [place], [place]
--- NOTE | 2021-06-30 13:56 | PDOC.CMIN ---
- If Service Date Differs Date of service: 06/30/21 Time of Service: 13:56 Care Management Initial Assess REASON FOR HOSPITALIZATION:: Hip Pain PAST MEDICAL HISTORY/PAST SURGICAL HISTORY:: Hypothyroidism (Chronic). Hip pain (Acute) PREVIOUS FUNCTIONAL STATUS/SOCIAL/FAMILY SUPPORTS:: Walter resides at an assisted living facility named [facility] in [place], [place]. In the last few days, he has been unable to ambulate, which is a requirement of Level 3 care. His sister and guardian, Sofia, is one of his primary caregivers. CURRENT FUNCTIONAL STATUS:: Walter is lying in bed, he makes verbal sounds and is holding hands with one of his caregivers. ADVANCE DIRECTIVES:: Guardian: Sofia, awaiting paperwork to process into medical chart. Has patient been provided with info about the portal/API?: Yes Did the patient sign up for the portal?: No CODE STATUS:: DNR/DNI INSURANCE COVERAGE / FINANCIAL ISSUES:: Medicaid. Medicare CURRENT HOME/COMMUNITY SERVICES/EQUIPMENT:: Previously: Level 3 assisted living facility PRIMARY CARE PHYSICIAN:: Gabbie Camargo POTENTIAL DISCHARGE NEEDS:: Coordinated discharge plan; disposition dependent on mobility. PATIENT/FAMILY EDUCATION NEEDS:: Review discharge instructions, discuss Ask Me Three. ANTICIPATED BARRIERS TO DISCHARGE:: None identified. TRANSPORTATION:: Dependent on mobility and disposition. PLAN:: Walter continues to be closely monitored at this time. Palliative consult entered to discuss goals of care with guardian. PT consult to determine level of functioning. Walter will return to senior living-vs-S/T rehab upon discharge; dependent on progress mobility. CM continues to follow.
[2021-06-30] MEDS: LORazepam 2 MG/ML VIAL 1 MG IVP (14:11)
--- NOTE | 2021-06-30 14:18 | PT.INNT ---
Date of service: 06/30/21 Time of Service: 14:18 PT Notes Visit Reasons: Hip Pain 06/30/2021 Hold afternoon PT session, per provider Virgie Willis NP, until results from CT (and/or MRI) are reviewed. Will attempt to resume PT services tomorrow morning, if indicated.
--- NOTE | 2021-06-30 14:25 | PGE_ITS ---
Date of Service Date of service: 06/30/21 Time of Service: 14:25 Assessment and Plan Assessment and plan (1) Hip pain: Start date: 06/30/21 Start time: 14:30 Status: Acute Assessment and plan: no witnessed or reported fall. Baseline, paces all day. From reports of home rental boats caretaker him not being able to sit at edge of bed is concerning for something wrong. He shows pain, by hollering and grimacing. he did that with PROM to LLE and palpation of spine plain film from Wednesday and CT of LE with no evidence of acute fracture or dislocation of the hip. Getting CT of Lumbar Spine at this time schedule pain medication Ketoralac, tylenol, and lidoderm patch to hip and sac rum PT/OT consultation (2) Nonverbal: Start date: 06/30/21 Start time: 14:52 Status: Acute Assessment and plan: patient is from caregiver home, nonverbal at baseline He never does not want to get up. as above (3) Ambulatory dysfunction: Start date: 06/30/21 Start time: 14:56 Status: Acute Assessment and plan: Patient will work with PT once feeling better Lumbar spine imaging pending (4) Hypothyroidism: Start date: 06/30/21 Start time: 14:51 Status: Chronic Assessment and plan: check TSH continue levothryoxine 50 mcg on wednesday-through Wednesday discussed with DR Bhatt Subjective Subjective Patient reports: other Interval history since last seen: Patient home health specialist with patient. She states, he paces usually all day. It is not like him to be nonwt wearing. Pacing is how he deals with anxiety. He will not even sit on edge of bed. Community Health Nurse Staff states he shows pain by hollering loud a nd facial grimacing. He had severe pain with passive ROM to LLE when pulling leg up to knee and pulling hip out then pushing on lumbar spine. He hollered out and then had facial grimacing, and rubbed his face. His rental boats caretaker stated he was in severe pain. CT ordered of lumbar spine pending. Will hold off on PT at this time. Exam Const General: cooperative, no acute distress and other (nonverbal unable to check oreintation, follows commands) Nutritional Appearance: obese Orientation: alert and awake Limitations: language barrier Eyes Eyelids: eyelids normal Pupils: PERRL EOM: EOM intact bilaterally Neck Neck: normal visual inspection and no JVD Lymphatic: no lymphadenopathy noted Resp Effort & Inspection: normal respiratory effort Auscultation: clear to auscultation bilaterally Cardio Jugular venous pressure: no JVD Rhythm: regular rhythm Heart Sounds: S1 normal GI Auscultation: normal bowel sounds Back/Spine/Pelvis Thoracic/Lumbar Spine: other (pain to lumbar spin) Skin General skin exam: no rashes or lesions noted Neuro General: patient alert, patient awake and other (nonverbal, unable to check orientation) Extrem Right upper extremity: normal to inspection and full ROM Left upper extremity: normal to inspection and full ROM Right lower extremity: normal to inspection and full ROM Left lower extremity: No abnormal to inspection, abnormal ROM and hip/thigh not examined Other: Patient has severe pain with PROM with LLE and palpation to spine Objective Last Vital Signs Temp 36.6 C 06/29/21 23:15 Pulse 66 06/29/21 23:15 Resp 22 06/29/21 23:15 BP 110/62 06/29/21 23:15 Pulse Ox 95 06/29/21 23:15 Laboratory Results - last 24 hr 06/29/21 06/29/21 06/30/21 11:25 16:20 07:50 WBC RBC Hgb Hct MCV MCH MCHC RDW Plt Count MPV Immature Gran % Neutrophils % Lymphocytes % Monocytes % Eosinophils % Basophils % Nucleated RBC % Absolute Neutrophils Absolute Lymphocytes Absolute Monocytes Absolute Eosinophils Absolute Basophils Sodium 145 Potassium 3.6 Chloride 110 H Carbon Dioxide 24.1 Anion Gap 10.9 BUN 17 Creatinine 0.9 Estimated GFR/1.73 m2 >= 60.00 Glucose 94 Calcium 8.7 Total Bilirubin 0.9 AST 28 ALT 20 Alkaline Phosphatase 58 Total Protein 7.2 Albumin 3.0 L TSH 5.92 H Free T4 1.09 COVID-19 Source Nasal/Nares SARS-CoV-2 (PCR) Negative 06/30/21 07:50 WBC 9.88 RBC 5.03 Hgb 15.4 Hct 44.8 MCV 89.1 MCH 30.6 MCHC 34.4 RDW 13.4 Plt Count 223 MPV 10.5 Immature Gran % 0.5 Neutrophils % 66.7 Lymphocytes % 22.1 Monocytes % 7.9 Eosinophils % 2.5 Basophils % 0.3 Nucleated RBC % 0 Absolute Neutrophils 6.59 Absolute Lymphocytes 2.18 Absolute Monocytes 0.78 Absolute Eosinophils 0.25 Absolute Basophils 0.03 Sodium Potassium Chloride Carbon Dioxide Anion Gap BUN Creatinine Estimated GFR/1.73 m2 Glucose Calcium Total Bilirubin AST ALT Alkaline Phosphatase Total Protein Albumin TSH Free T4 COVID-19 Source SARS-CoV-2 (PCR)
[2021-06-30] MEDS: Lidocaine 5% Patch 1 PATCH TP (14:54)
[2021-06-30] MEDS: Tamsulosin 0.4 MG CAPCR PO (14:55)
--- NOTE | 2021-06-30 15:10 | PCNE_ITS ---
Date of service: 06/30/21 Time of Service: 13:30 History of Present Illness Narrative: Mr. Watson is a 75 y/o M currently inpatient at [facility] 05/28 R hip pain Hospital course: presented to ED 06/27/21 for L leg pain, discharged home after negative work up, re-presented to ED 06/29/21 w/inability to bear weight, hip pain and urinary retention; CT no acute findings, catheter w/700cc urine; PT/OT consults pending Spoke to nursing home staff, [place], present in room: pt typically a ?pacer?, always walking around; on 06/27/21 at 10:30 after sitting in chair was unable to ambulate, presented to ED, r/o acute process, provided pain meds, returned home; pt non-ambulatory, bed bound all of 06/28 and 06/29 returned to ED; has not been out of bed since arrival to inpatient; pt grarmando and kerrie when in pain; reports pt is DNR/I, transfer only if comfort can?t be managed at home; Sofia, sister/guardian, to present today w/AD/COLST paperwork; [facility] could come to nursing home, at this time nursing home unable to care for him while bed bound, but would like him to return home as possible; pt has lived in custodial for around 30 years, he is most comfortable there PT/OT consults pending; CT/XR no acute process identified Guardian: Sofia Christiansen (sister) ? [phone] DNA on attempt to contact; Myrna Mayfield, nursing home provider ([phone]); Caryl AGUILAR Human Services RN [phone] Assessment and Plan Assessment and plan (1) Hip pain: Status: Acute Assessment and plan: PT/OT consults pending; pain controlled when supine, unable to ambulate at this time (2) Nonverbal: Status: Acute Assessment and plan: able to express and demonstrate increased pain (3) Ambulatory dysfunction: Status: Acute Assessment and plan: change from previous status (4) Palliative care status: Status: Acute Assessment and plan: continue to follow, f/u pending discharge to SNF or return to nursing home, recommend [facility] upon return home; Sofia (guardian) to contact palliative care PRN Review of Systems Unobtainable due to mental condition PFSH All Active Problems (Updated 06/30/21 @ 15:27 by Bianka Peguero NP) Palliative care status (Acute) Ambulatory dysfunction (Acute) Nonverbal (Acute) Hypothyroidism (Chronic) Hip pain (Acute) Social History Smoking/Tobacco Use Status: Never Smoking risk assessment performed?: Yes Alcohol Intake: never Drug use: Never Substance use type: does not use Do you feel safe at home: Yes Additional Social history: lives in an assisted living facility Exam Narrative Exam Narrative: pt laying in bed nonverbal no grimacing or hollering throughout visit Const General: comfortable and no acute distress Resp Effort & Inspection: normal respiratory effort Other: clears throat occasionally; no cyanosis lips; Skin General skin exam: no rashes or lesions noted Neuro General: patient alert and patient awake Extrem Other: moves all 4 extremities, no edema Results Last Vital Signs Temp 97.9 F 06/29/21 23:15 Pulse 66 06/29/21 23:15 Resp 22 06/29/21 23:15 BP 110/62 06/29/21 23:15 Pulse Ox 95 06/29/21 23:15 Labs Result diagrams: 06/30/21 07:50 06/30/21 07:50 Labs: Laboratory Results - last 24 hr 06/29/21 06/29/21 06/30/21 11:25 16:20 07:50 WBC RBC Hgb Hct MCV MCH MCHC RDW Plt Count MPV Immature Gran % Neutrophils % Lymphocytes % Monocytes % Eosinophils % Basophils % Nucleated RBC % Absolute Neutrophils Absolute Lymphocytes Absolute Monocytes Absolute Eosinophils Absolute Basophils Sodium 145 Potassium 3.6 Chloride 110 H Carbon Dioxide 24.1 Anion Gap 10.9 BUN 17 Creatinine 0.9 Estimated GFR/1.73 m2 >= 60.00 Glucose 94 Calcium 8.7 Total Bilirubin 0.9 AST 28 ALT 20 Alkaline Phosphatase 58 Total Protein 7.2 Albumin 3.0 L TSH 5.92 H Free T4 1.09 COVID-19 Source Nasal/Nares SARS-CoV-2 (PCR) Negative 06/30/21 07:50 WBC 9.88 RBC 5.03 Hgb 15.4 Hct 44.8 MCV 89.1 MCH 30.6 MCHC 34.4 RDW 13.4 Plt Count 223 MPV 10.5 Immature Gran % 0.5 Neutrophils % 66.7 Lymphocytes % 22.1 Monocytes % 7.9 Eosinophils % 2.5 Basophils % 0.3 Nucleated RBC % 0 Absolute Neutrophils 6.59 Absolute Lymphocytes 2.18 Absolute Monocytes 0.78 Absolute Eosinophils 0.25 Absolute Basophils 0.03 Sodium Potassium Chloride Carbon Dioxide Anion Gap BUN Creatinine Estimated GFR/1.73 m2 Glucose Calcium Total Bilirubin AST ALT Alkaline Phosphatase Total Protein Albumin TSH Free T4 COVID-19 Source SARS-CoV-2 (PCR)
[2021-06-30] MEDS: Ketorolac 15 MG/ML VIAL IVP ×2 (16:05→21:49)
[2021-06-30] MEDS: predniSONE 20 MG TAB 40 MG PO (17:28)
[2021-06-30] MEDS: Gabapentin 100 MG CAP PO (20:01)
[2021-06-30] MEDS: Acetaminophen 500 MG TAB PO (20:01)
[2021-06-30 20:24] VITALS: BP 103/70; PULSE 73; RESP 20; TEMP 36.5; O2SAT 99
[2021-06-30 23:28] VITALS: BP 121/75; PULSE 82; RESP 22; TEMP 36.6; O2SAT 96
[2021-07-01] MEDS: Acetaminophen 500 MG TAB PO ×2 (03:40→09:01)
[2021-07-01] MEDS: Normal Saline Flush 10 ML SYR IVP (03:40)
[2021-07-01] MEDS: Ketorolac 15 MG/ML VIAL IVP ×2 (03:40→10:48)
[2021-07-01] MEDS: Levothyroxine 50 MCG TAB PO (06:45)
[2021-07-01 07:45] VITALS: BP 174/85; PULSE 99; RESP 22; TEMP 36; O2SAT 96
--- NOTE | 2021-07-01 08:26 | OT.INIE ---
Occupational Therapy Notes Inpatient Occupational Therapy Evaluation Date: 07/01/21 Referring Doctor: Cheyanne Bhatt MD OT Orders: Non Urgent Precautions: Fall, standard, DNR/DNI PATIENT PROFILE/ADMITTING DIAGNOSIS: Pt is a 75 year old male who presented to the ED with chief complaints of inability to bear weight, left hip pain, and urinary retention. Past Medical History: All Active Problems?(Updated 06/29/21 @ 16:32 by Jacque Ag NP) Hypothyroidism (Chronic) Hip pain (Acute) Social History/Home Situation: Pt lives in a intermediate. Per phone conversation with pts caregiver it was reported that pt is max (A) for bathing, he is able to don and doff his socks (I) and his pants. With (A) to have shirt placed on his head he is able to put his arms in and get the rest of his shirt on. Pt requires max (A) for eating and is typically (I) with his functional mobility. Other than dressing with socks and pants, pt requires max (A). Equipment owned/DME: DME needs met by intermediate. SUBJECTIVE: Pt was sitting in chair with caregiver sitting at his side. He is non verbal and communicating through making sounds. Caregiver is able to call head person at intermediate for OT to speak with regarding pts baseline level of function. OBJECTIVE: General Observation: Alert, able to follow simple commands like raising arms up, pleasant Mental Status: A&O to name Pain: Unable to assess ROM: RUE AROM WFL L UE AROM WFL STRENGTH: RUE Unable to assess LUE Unable to assess FUNCTIONAL MOBILITY/ADLS: Pt was able to (I) doff his socks while sitting in the chair. He has AROM required to perform pulling pants up. Per discussion with caregiver in the room and with caregiver on the phone it does appear that functional activity flowers including ADL/IADL routines that pt is at his baseline level of function. BALANCE: Static sitting Normal Dynamic Sitting Good SPECIAL TESTS: Daily Activity Limitations Standardized Measure [facility] AM -PAC ?6 clicks? Daily Activity Inpatient Short Form: Raw score: 8 Standardized score: 22.86 CMS score: 85.69% INFORMED CONSENT/EDUCATION: Pt instructed in purpose of OT Consult and plan of care. ASSESSMENT: Patient is a 75-year-old male referred to occupational therapy services with diagnosis of chief complaint of inability to bear weight, left hip pain, and urinary retention. Patient presents with clinical signs and symptoms consistent with dx. Pt was seen for OT consult today, after discussion with pts main caregiver via phone and OT assessment pt is currently at his functional baseline level of function. AMPAC score 8 Patient is assessed as a high 89297 complexity based on the following: History: see above Examination: see functional limitations as noted above Presentation: evolving Decision Making: AMPAC score 8 GOALS N/A seen for OT consult only. PLAN OF CARE/TREATMENT PLAN: Discharge from skilled OT services. DISCHARGE RECOMMENDATIONS OT recommends that pt return to intermediate when medically cleared per MD. TREATMENT TIME/MINUTES/CODES 06441, 15 minutes (07:45) Sarah Marvin OTR/[facility]
[2021-07-01] MEDS: Docusate Sodium 100 MG CAP PO (09:01)
[2021-07-01] MEDS: Gabapentin 100 MG CAP PO (09:01)
[2021-07-01] MEDS: Tamsulosin 0.4 MG CAPCR PO (09:01)
[2021-07-01] MEDS: Multivitamin TAB 1 TAB PO (09:01)
[2021-07-01] MEDS: predniSONE 20 MG TAB 40 MG PO (09:01)
--- NOTE | 2021-07-01 11:09 | PT.INTREAT ---
Date of service: 07/01/21 Time of Service: 10:41 PT Notes Visit Reasons: Hip Pain Inpatient Physical Therapy Treatment Note [facility] Date: 07/01/2021 PRECAUTIONS: Fall, Activity as tolerated, Autism, Non-verbal SUBJECTIVE: Walter indicates that he is agreeable to going for a walk. OBJECTIVE: sandwich machine operator present for each session. PAIN: Patient did not indicate pain BED MOBILITY/TRANSFERS Sit-stand: CGA Stand-sit: CGA GAIT Assistive Device: DEVELOPER EVANGELIST x2 Weight bearing: Full Assist: CGA x2 -SBA x2 Distance: ~ 15 minutes in both a.m. and p.m. Deviation: Slow and steady pace, toe-out gait bilaterally ASSESSMENT: Patient tolerated gait training without indication of pain. He was able to tolerate approximately 15 minutes of continuous ambulation with DEVELOPER EVANGELIST x2 and CGA x2 - SBA x2. PLAN: Patient to discharge back to senior living later today, per provider. No services recommended at discharge at this time. TREATMENT CODE/TIME: Session 1: 24 minutes; 67015 x2 (10:41) Session 2: 25 minutes; 53559 x2 (13:32)
--- NOTE | 2021-07-01 11:16 | W.NUTRFU ---
Date of service: 07/01/21 Time of Service: 11:16 Nutrition Note NOTE: Walter is following regular meal plan/minced and moist and meeting nutrient and fluid needs by mouth. Not at nutritional risk at this time. Weight stable since previous admisson in 2019. Will continue to follow. Time Spent in Nutritional Counseling and Treatment: 0
--- NOTE | 2021-07-01 14:02 | DSE_ITS ---
Date of service: 07/01/21 Time of Service: 14:02 DS: Diagnosis Discharge Diagnosis (1) Hip pain: Status: Acute (2) Nonverbal: Status: Acute (3) Ambulatory dysfunction: Status: Acute (4) Palliative care status: Status: Acute Discharge Plan Disposition Patient Disposition: HOME W/HOME HEALTH SERVICE Condition: Improving Discharge Details Reason For Visit: Hip Pain Admit Date/Time: 06/29/21 15:45 Admit Provider: Cheyanne Bhatt Attending Provider: Cheyanne Bhatt Primary Care Provider: Gabbie Camargo Hospital Course Hospital Course: This is a 75-year-old gentleman, nonverbal, who presented via EMS from his retirement with a staff member who reports that he does not appear to be at his baseline.? They state that he is typically ambulatory without assistance and today after sitting after breakfast he did not want to stand and they felt as though he was likely favoring his right leg.? They do know that he has a history of right hip surgery.? Deny any recent illness or trauma.? They used [id number] medications which did not seem to help so they presented to the ED for further evaluation.? There is no obvious deformity, shortening or rotation, normal pedal pulse, no calf swelling, redness, palpable cord.? Patient has full range of motion of his leg.? He was imaged in the ED with a plain film with no acute bony abnormality noted. He was re-ambulated in the ED and discharged back home only to return again the next day for the same chief c/o. CT scans and labs check with no acute findings to explain his symptoms. He was also noted to have urinary retention and required straight cath for 700 cc retention. He was started on scheduled OTC pain medication which did not get him ambulating. at this point steroids, gabapentin and a lidocaine patch applied. the following day he is no ambulating and felt to be at baseline base on reports of staff who work at the facility who have remained at his bedside to assist with his care. He has remained medically stable and is responding well to current medication regimen. He was also started on tamsulosin to facilitate bladder emptying. He has been incontinent of urine which is not his baseline but likely due to being out of his familiar environment. He has had no behavior issues since admission. his is now stable and safe for discharge to home with home PT. He is being discharged to home with caregiver. discharge discussed with DR Bhatt. Home Meds and New Rx's Prescriptions: New gabapentin 100 mg Capsule 100 mg PO TID Qty: 90 0RF prednisone 20 mg Tablet 40 mg PO DAILY Qty: 10 0RF tamsulosin 0.4 mg Capsule 0.4 mg PO DAILY Qty: 30 0RF lidocaine 5 % Adhesive Patch,Medicated 1 patch topical DAILY@1400 Qty: 15 0RF Continued acetaminophen [Mapap Extra Strength] 500 MG tablet 500 mg PO Q4H PRN PRN (Reason: Pain) 0RF Murine Ear Wax Removal System 18 ML drops 3 - 4 patch DIRECTED 0RF docusate sodium [Colace] 100 MG capsule 100 mg PO BID 0RF multivitamin 1 EACH capsule 1 ea PO BID 0RF levothyroxine 50 mcg Tablet See Rx Instructions .ROUTE .COMPLEX 0RF Rx Instructions: 50 mcg orally 5 days a week: Mon-Fri Discharge Instructions Instructions: Urinary Retention in Men (ED), Back Pain (ED) Stand Alone Forms: Nursing Discharge Form Referrals: Gabbie Camargo NP [Primary Care Provider] - ( Please call your PCP to make an Appointment in the next 2 weeks ) Activity:: Activity as Tolerated Equipment/Supplies:: No Equipment Needed Diet:: As Tolerated Discharge Orders Discharge Orders: Discharge Order (Routine); Ordered 07/01/21 Ordered By: Jacque Ag Discharge Data Discharge Date/Time-TO BE ENTERED AT DEPARTURE: 07/01/21 14:52 DS: Summary Time Spent with Patient providing and/or coordinating discharge services: Greater than 30 minutes Status at Discharge Functional status at discharge: independent ambulation Overall status at discharge: patient is progressing back to baseline Mental Status: other Speech and Movement: other Mood: other Affect: other Exam Const General: comfortable and no acute distress Nutritional Appearance: average body habitus and well nourished Orientation: alert, awake and other (non verbal, does not follow commands) HENMT Head: normal to inspection, normocephalic and atraumatic Chest Chest: normal inspection of the chest Resp Effort & Inspection: normal respiratory effort Cardio Rate: regular rate Rhythm: regular rhythm GI Inspection: normal to inspection Palpation: soft Skin General skin exam: no rashes or lesions noted and no ecchymosis Neuro Motor: muscle tone normal throughout Extrem General: normal to inspection, full ROM and no pedal edema Psych Mental Status: other Speech and Movement: other Mood: other Affect: other DS: Data Vitals/I&O Vitals and I&O: Vital Signs Temperature 36 C L 07/01/21 07:45 Temperature Source Tympanic 07/01/21 07:45 Pulse 99 H 07/01/21 07:45 Pulse Rhythm Regular 07/01/21 12:18 Pulse 78 06/29/21 16:31 Respiratory Rate 22 07/01/21 07:45 Respiratory Effort Non-Labored 07/01/21 12:18 Respiratory Depth Normal 07/01/21 12:18 Respiratory Pattern Normal 07/01/21 12:18 Blood Pressure 174/85 H 07/01/21 07:45 Blood Pressure Mean 88 06/29/21 16:30 Blood Pressure Position Supine 06/29/21 10:21 Pulse Oximetry 96 07/01/21 07:45 Oxygen Delivery Method Room Air 07/01/21 07:45 Oxygen Flow Rate 0 07/01/21 07:45 Pain Level 0 06/30/21 23:28 Comment 06/30/21 07:49 Intake & Output 06/30/21 07/01/21 07/01/21 23:59 11:59 23:59 Intake Total 600 / 700 180 / 180 Output Total 0 / 0 Balance 600 / 25 0 / 180 180 / 180 Intake: Oral 600 / 600 180 / 180 Output: Urine 0 / 0 Other: Urine Color Straw Urine Appearance Clear Comment pt was on his side pT was grossly incont pT dry at this time Stool Size Small Moderate Stool Characteristics Soft Soft Liquid Brown Voiding Methods Diaper Incontinent PFSH All Active Problems (Updated 06/30/21 @ 15:27 by Bianka Peguero NP) Palliative care status (Acute) Ambulatory dysfunction (Acute) Nonverbal (Acute) Hypothyroidism (Chronic) Hip pain (Acute) Social History Smoking/Tobacco Use Status: Never Smoking risk assessment performed?: Yes Alcohol Intake: never Drug use: Never Substance use type: does not use Do you feel safe at home: Yes Additional Social history: lives in an assisted living facility
--- NOTE | 2021-07-01 15:13 | PDOC.HHF2F_ITS ---
Home Health Certification Home Health Certification: 1. Encounter Date and Reason I certify that Walter Louis was seen by Jacque Ag on 07/01/21 and that I had a [id number] encounter with this patient that meets the physician face to face encounter requirements. 2. Clinical Findings Supporting Skilled Need and Homebound Status I certify that home health services are medically necessary, include either intermittent correction and/or physical/speech therapy, and that this patie nt is homebound in that absences from the home require considerable and taxing effort and are infrequent or of short duration, or are attributable to the need to receive medical care. [X] (a) Attached documentation from encounter provides clinical findings supporting skilled need and homebound status (including what assistance patient requires to leave the home). The encounter with the patient was in whole, or in part, for the following medical condition, which is the primary reason for home health care: Hip Pain Physical Therapy: routine evaluation and recommendations Homebound: patient is unable to safely leave the house unattended d/t cognitive impairment. 3. Certification and Authentication I certify that I composed the above information based on my clinical judgment relating to this patient's medical condition and, if applicable, clinical findings communicated to me by the NPP or inpatient physician who performed the Home Health Referral. All further orders will be obtained through BERNARDINO MCCLURE NP(Community Based Physician - PCP)
--- NOTE | 2021-07-01 16:11 | CMDISCH_ITS ---
- If Service Date Differs Date of service: 07/01/21 Time of Service: 16:11 LACE Index Scoring Tool - Questions: Length of Stay (in days): 2 Acuity (Admit via E.D.?): Yes E.D. Visits: 2 - Answers: Total Score: 7 Risk of Readmission: Low Risk Care Management Discharge Reason for Hospitalization: Hip Pain Discharge Plan: CM coordinated discharge planning meeting with [facility] seed corn production manager, caregiver, [facility] RN, [facility] MEDIA SENIOR RECRUITER and this physician underwriter. Walter was ambulating through the hallways today, appearing to be much closer to his baseline functioning. He will return to [facility]-his Level 3 home for the last 29 years-and transport via private vehicle with [facility] staff. CM called [facility] to review [facility] discharge plan, provided information to [facility]: Walter's PCP is Margaret Klein. Sofia Christiansen (sister) ? [phone], Myrna Mayfield, longterm provider ([phone]); Caryl AGUILAR Human Services RN [phone] Patient/Family Education Needs: Review discharge instructions, discuss Ask Me Three. - MH Services (Omit if N/A) Current MH Services: Other (IDDS Level 3)
--- NOTE | 2021-07-01 16:11 | PDOC.CMDIS ---
- If Service Date Differs Date of service: 07/01/21 Time of Service: 16:11 LACE Index Scoring Tool - Questions: Length of Stay (in days): 2 Acuity (Admit via E.D.?): Yes E.D. Visits: 2 - Answers: Total Score: 7 Risk of Readmission: Low Risk Care Management Discharge Reason for Hospitalization: Hip Pain Discharge Plan: CM coordinated discharge planning meeting with [facility] veterinary manager, caregiver, [facility] RN, [facility] CSW and this advertising writer. Walter was ambulating through the hallways today, appearing to be much closer to his baseline functioning. He will return to [facility]-his [facility] home for the last 29 years-and transport via private vehicle with [facility] staff. CM called [facility] to review [facility] discharge plan, provided information to [facility]: Walter's PCP is Margaret Klein. Sofia Christiansen (sister) ? [phone], Myrna Mayfield, shelter provider ([phone]); Caryl AGUILAR Human Services RN [phone] Patient/Family Education Needs: Review discharge instructions, discuss Ask Me Three. - MH Services (Omit if N/A) Current MH Services: Other (IDDS Level 3)
--- NOTE | 2021-07-01 18:00 | INDS_ITS ---
Date of service: 07/01/21 PT Notes Visit Reasons: Hip Pain Physical Therapy Inpatient Discharge Summary Date: 07/01/2021 Dates of Service: 06/30/2021 through 07/01/2021 This is a clinical summary of care provided for the duration of dates listed above. No charge was made in the completion of this documentation. Referring Doctor: Jacque Ag NP PT Orders: PT CONSULT: Eval/treat Precautions: Fall.? Standard.? Activity as tolerated.? Developmental delay. Seizure-prone.? Dysphasic. Patient Profile/Admitting Diagnosis: Walter is a 75-year-old male who presented to the ED on 06/29/2021 due to inability to bear weight on bilateral lower extremities, urinary retention,? and left hip pain.? Patient is diagnosed with hip pain, hypothyroidism, and ambulatory dysfunction.? X-ray of the left hip showed no fracture. PMHX: All Active Problems?(Updated 06/29/21 @ 16:32 by Jacque Ag NP) Hypothyroidism (Chronic) Hip pain (Acute) Medical History Hypertension Seizure disorder Autism Developmental delay Hip surgery Social History/Home Situation:?Lives in a chcf in [place], [place].? Has 16/11 supervision.? Bedroom is on the second floor with a flight of steps that patient always have somebody with him for all mobility ADL performance. Equipment Owned/DME: None Subjective: NT. See most recent CERTIFIED COURT INTERPRETER notes. Objective: General Observation: NT. See most recent CERTIFIED COURT INTERPRETER notes. Mental Status: NT. See most recent CERTIFIED COURT INTERPRETER notes. Pain: NT. See most recent CERTIFIED COURT INTERPRETER notes. ROM: Lacks the last 50% of passive range of motion in all joints of B LE. Expression of pain observed with attempt at testing R hamstring while in supine. Strength: Right Lower Extremity: Hip flexors 3-/5. Hip abductors 3-/5. Knee flexors 3-/5. Knee extensors 3-/5. Ankle dorsiflexors 3-/5. Ankle plantarflexors 3-/5. Left Lower Extremity:Hip flexors 3-/5. Hip abductors 3-/5. Knee flexors 3-/5. Knee extensors 3-/5. Ankle dorsiflexors 3-/5. Ankle plantarflexors 3-/5. Sensation: Intact as to pain and pressure on bilateral lower extremities. Bed Mobility/Transfers: Supine to sit independent Sit to supine independent Sit to stand stand bby assist Stand to sit stand bby assist Gait:? Able to walk up to 15 minutes stand by assist of 1 with no assistive device. Balance: Static Sitting: Normal Dynamic Sitting: Normal Static Standing: Good Dynamic Standing: Good Assessment:? Patient demonstrates functional mobility improvement during this episode of care as evidenced by the gaol status below and mobility level above. Goals: Goals X1 week 1. Supine-Sit independent MET 2. Sit-Supine independent MET 3. Sit-Stand independent MET 4. Stand-Sit independent NOT MET 5. Bed-Chair independent NOT MET 6. Chair-Bed independent NOT MET 7.? Supervision gait on level surface with use of no AD for at least 100 feet without report of pain nor dyspnea NOT MET DISCHARGE RECOMMENDATIONS: [] ? Home with no services [] [] ? Home with services [specify] [] ? Home with outpatient PT [] [X] ? SNF for continued rehabilitation.? Patient will benefit from group home facility placement for continued skilled physical therapy services in order to progress mobility level, strength, and balance in preparation for a safe discharge to home. [] ? [facility] [] [] ? SNF versus LTC based on ability to participate and progress [] TREATMENT CODE/TIME: NC Thank you for the opportunity to participate in the care of this patient. Megha Fish PT, DPT, CLT [facility] [place], [place]
== END 2021-07-01 14:52 | disposition home health service (06) | DRG 556 ==
LOC: ER 16:02 → MS 16:45
PROVIDERS: Nurse Practitioner Acute Care; Admitting Provider Internal Medicine; Emergency Provider Nurse Practitioner Family; PCP Nurse Practitioner Family; Visit Provider Internal Medicine
DX: M25.551 Pain in right hip (principal); R47.01 Aphasia; R33.9 Retention of urine, unspecified; E03.9 Hypothyroidism, unspecified; R26.2 Difficulty in walking, not elsewhere classified
CPT/HCPCS: 36415; 51701; 80053; 87635; 96374; 96375; 97163; 97167; 97530; 99285; 73700; 74177; 81003; 81015; 84439; 84443; 85025; 99222; 99233; 99239; J0131; J1885; J2060; J3490; J7512

== ENCOUNTER 2021-07-01 16:42 | Outpatient (REF) | payer MEDICARE, MEDICAID, SELFPAY | END 2021-07-01 16:43 | disposition home or self-care (01) | LOC: LBN 16:42 | PROVIDERS: PCP Nurse Practitioner Family; Visit Provider Internal Medicine ==

== ENCOUNTER 2021-09-12 19:45 | Outpatient (REF) | payer MEDICARE, MEDICAID, SELFPAY ==
[2021-09-12 16:20] LABS: ALT 24 U/L (16-63); AST 28 U/L (15-37); Albumin 3.6 g/dL (3.4-5.0); Alkaline Phosphatase 73 U/L (46-116); Anion Gap 7.7 mmol/L (3-11); BUN 14 mg/dL (7-18); Bilirubin, Total 0.6 mg/dL (0.2-1.0); CO2 23.3 mmol/L (21.0-32.0); CREATININE 0.8 mg/dL (0.70-1.30); Calcium 8.7 mg/dL (8.5-10.1); Chloride 107 mmol/L (98-107); Glucose 85 mg/dL (74-106); Potassium 4.1 mmol/L (3.5-5.1); Sodium 138 mmol/L (136-145); TSH 3.92 uIU/mL (0.36-3.74); Total Protein 7.4 g/dL (6.4-8.2)
== END 2021-09-12 19:46 | disposition home or self-care (01) ==
LOC: NCHCN 19:45
PROVIDERS: PCP Nurse Practitioner Family; Visit Provider Nurse Practitioner Family
DX: E03.9 Hypothyroidism, unspecified (principal)
CPT/HCPCS: 80053; 84443

== ENCOUNTER 2022-04-21 04:00 | Outpatient (CLI) | payer MEDICARE, MEDICAID, SELFPAY ==
[2022-04-21 11:53] LABS: ALT 21 U/L (16-63); AST 26 U/L (15-37); Albumin 3.4 g/dL (3.4-5.0); Alkaline Phosphatase 76 U/L (46-116); Bilirubin, Direct 0.1 mg/dL (0.0-0.2); Bilirubin, Total 0.6 mg/dL (0.2-1.0); Total Protein 7.5 g/dL (6.4-8.2)
== END 2022-04-21 04:01 | disposition home or self-care (01) ==
LOC: LBO 04:00
PROVIDERS: PCP Nurse Practitioner Family; Visit Provider Nurse Practitioner Family
DX: B35.1 Tinea unguium (principal)
CPT/HCPCS: 36415; 80076

== ENCOUNTER 2022-09-25 12:50 | Outpatient (REF) | payer MEDICARE, MEDICAID, SELFPAY ==
[2022-09-25 13:00] LABS: Bilirubin Negative (Negative); Blood Negative (Negative); Clarity Clear (Clear); Glucose Negative (Negative); Ketones Negative (Negative); Leukocyte Esterase Negative (Negative); Nitrite Negative (Negative); Urobilinogen 0.2 mg/dL (Up to 0.2)
== END 2022-09-25 12:51 | disposition home or self-care (01) ==
LOC: NCHCN 12:50
PROVIDERS: PCP Nurse Practitioner Family; Visit Provider Nurse Practitioner Family
DX: R45.1 Restlessness and agitation (principal); R39.89 Other symptoms and signs involving the genitourinary system
CPT/HCPCS: 81003

== ENCOUNTER 2022-10-01 03:06 | Outpatient (CLI) | payer MEDICARE, MEDICAID, SELFPAY ==
[2022-10-01 13:49] LABS: Abs Immature Grans 0.03 10^3/uL (0.0-0.06); Absolute Basophil Count 0.06 10^3/uL (0.0-0.2); Absolute Eosinophil Count 0.53 10^3/uL (0.0-0.7); Absolute Lymphocyte Count 3.78 10^3/uL (1.2-3.4); Absolute Monocyte Count 0.99 10^3/uL (0.1-0.8); Absolute Neutrophil Count 4.86 10^3/uL (1.2-6.7); Basophils % 0.6; Eosinophils % 5.2; HCT 46.2 % (40.0-50.0); HGB 15.7 g/dL (13.5-17.5); Immature Grans % 0.3; Lymphocytes % 36.9; MCH 30.1 pg (27.0-33.0); MCV 89 fL (80-95); Monocytes % 9.7; Neutrophils % 47.3; Platelet Count 210 10^3/uL (130-400); RBC 5.22 10^6/uL (4.36-5.78); RDW 13.2 % (11.8-14.1); RDW-SD 42.8 fL; WBC 10.25 10^3/uL (4.4-10.8)
[2022-10-01 14:24] LABS: ALT 27 U/L (16-63); AST 25 U/L (15-37); Albumin 3.4 g/dL (3.4-5.0); Alkaline Phosphatase 70 U/L (46-116); Anion Gap 7.1 mmol/L (3-11); BUN 18 mg/dL (7-18); Bilirubin, Direct 0.1 mg/dL (0.0-0.2); Bilirubin, Total 0.5 mg/dL (0.2-1.0); CO2 24.9 mmol/L (21.0-32.0); CREATININE 0.9 mg/dL (0.70-1.30); Calcium 8.7 mg/dL (8.5-10.1); Chloride 106 mmol/L (98-107); Estimated GFR 89.07 (mL/min/1.73m2); Glucose 107 mg/dL (74-106); Potassium 4.3 mmol/L (3.5-5.1); Sodium 138 mmol/L (136-145); TSH 3.55 uIU/mL (0.36-3.74); Total Protein 7.6 g/dL (6.4-8.2)
== END 2022-10-01 03:07 | disposition home or self-care (01) ==
LOC: LBO 03:06
PROVIDERS: PCP Nurse Practitioner Family; Visit Provider Nurse Practitioner Family
DX: R45.1 Restlessness and agitation (principal); B35.1 Tinea unguium; Z79.899 Other long term (current) drug therapy; R73.09 Other abnormal glucose; E03.9 Hypothyroidism, unspecified
CPT/HCPCS: 36415; 80053; 80076; 83036; 84443; 85025

== ENCOUNTER 2022-11-11 16:44 | Outpatient (REF) | payer MEDICARE, MEDICAID, SELFPAY ==
[2022-11-11 17:18] LABS: Bilirubin Negative (Negative); Blood Negative (Negative); Clarity Clear (Clear); Glucose Negative (Negative); Ketones Trace mg/dL (Negative); Leukocyte Esterase Negative (Negative); Nitrite Negative (Negative); Specific Gravity 1.015 (1.005-1.025); Urobilinogen 0.2 mg/dL (Up to 0.2)
== END 2022-11-11 16:45 | disposition home or self-care (01) ==
LOC: NCHCN 16:44
PROVIDERS: PCP Nurse Practitioner Family; Visit Provider Nurse Practitioner Family
DX: R33.9 Retention of urine, unspecified (principal)
CPT/HCPCS: 81003